=== PATIENT | male | born 1995 | race Caucasian/White ===

== ENCOUNTER 2025-05-02 13:29 | Emergency (ER) | payer OTHER ==
[~2025-05-02] VITALS: Ht 175.3 cm; Wt 106.0 kg
[2025-05-02 14:12] LABS: BASOPHILS 0.5 % (0.2-1.2); EOSINOPHILS 0.7 % (0.8-7.0); HEMATOCRIT 45.3 % (40.1-51.0); HEMOGLOBIN 15.6 g/dL (13.7-17.5); LYMPHOCYTES 26.2 % (21.8-53.1); MCH 31.4 PG (25.7-32.2); MCHC 34.4 g/dL (32.3-36.5); MCV 91.1 fL (79.0-92.2); MONOCYTES 9.9 % (5.3-12.2); NEUTROPHILS 62.5 % (34.0-67.9); PLATELET COUNT 252 K/uL (163-337); RBC 4.97 M/uL (4.63-6.08)
[2025-05-02 14:25] LABS: BILIRUBIN, URINE POSITIVE (negative); BLOOD/HGB, URINE NEGATIVE (Negative); KETONE, URINE SMALL (Negative); LEUK ESTERASE, URINE NEGATIVE (negative); NITRITE, URINE NEGATIVE (negative)
[2025-05-02 14:35] LABS: ACETAMINOPHEN 0 ug/mL (10-30); ALBUMIN 3.7 g/dL (3.4-5.0); ALBUMIN/GLOBULIN RATIO 0.86 (1.1-2.4); ALCOHOL, MEDICAL <3 ng/dL (<3); ALKALINE PHOSPHATASE 89 U/L (46-116); ALT (SGPT) 35 U/L (14-59); ANION GAP 12.7 (7-21); AST (SGOT) 20 U/L (15-37); BILIRUBIN, TOTAL 0.9 mg/dL (0.2-1.0); BUN/CREATININE RATIO 18.75 (6.0-28.6); CALCIUM 9.4 mg/dL (8.5-10.1); CARBON DIOXIDE 23 mmol/L (21-32); CHLORIDE 104 mmol/L (98-107); CREATININE, SERUM 0.96 mg/dL (0.70-1.30); GLOMERULAR FILTRATION RATE,EST 108 mL/min (>60); POTASSIUM 3.7 mmol/L (3.5-5.1); SALICYLATE 1.2 mg/dL (2.8-20.0); TSH, 3RD GENERATION 2.252 uIU/mL (0.358-3.740); UREA NITROGEN 18 mg/dL (7-18)
[2025-05-02 14:46] LABS: AMPHETAMINES, URINE NEGATIVE (NEGATIVE); BARBITURATES, URINE NEGATIVE (NEGATIVE); BENZODIAZEPINE, URINE NEGATIVE (NEGATIVE); BUPRENORPHINE, URINE POSITIVE (NEGATIVE); CANNABINOID, URINE NEGATIVE (NEGATIVE); COCAINE, URINE NEGATIVE (NEGATIVE); ECSTASY, URINE NEGATIVE (NEGATIVE); FENTANYL, URINE NEGATIVE (NEGATIVE); METHADONE, URINE NEGATIVE (NEGATIVE); OPIATES, URINE NEGATIVE (NEGATIVE); OXYCODONE, URINE NEGATIVE (NEGATIVE); PHENCYCLIDINE, URINE NEGATIVE (NEGATIVE)
[2025-05-02 17:12] VITALS: BP 118/75
== END 2025-05-02 17:15 | disposition other institution, planned readmission (95) ==
LOC: ED 13:29
PROVIDERS: Emergency Medicine
DX: R45.88 Nonsuicidal self-harm (principal); S00.83XA Contusion of other part of head, initial encounter; W22.01XA Walked into wall, initial encounter
CPT/HCPCS: 36415; 51701; 70450; 71045; 72125; 80053; 80307; 81003; 84443; 85025; 99284-25; G0480

== ENCOUNTER 2025-07-05 15:14 | Emergency (ER) | payer OTHER ==
[~2025-07-05] VITALS: Ht 175.3 cm; Wt 100.0 kg
[2025-07-05] MEDS ORDERED: OMEPRAZOLE20 MG PO (15:30)
[2025-07-05] MEDS ORDERED: SERTRALINE HCL50 MG PO ×2 (15:31)
[2025-07-05] MEDS ORDERED: ABILIFY5 MG PO (15:31)
[2025-07-05] MEDS ORDERED: VITAMIN D3125 MC1 PO (15:32)
[2025-07-05 19:22] VITALS: BP 119/82
== END 2025-07-05 19:20 | disposition home or self-care (01) ==
LOC: ED 15:14
DX: S00.81XA Abrasion of other part of head, initial encounter (principal); W22.8XXA Striking against or struck by other objects, initial encounter; E03.9 Hypothyroidism, unspecified; E66.9 Obesity, unspecified; Z79.899 Other long term (current) drug therapy
CPT/HCPCS: 70450; 99284-25